=== PATIENT | male | born 1985 | race Caucasian/White ===

== ENCOUNTER 2019-02-09 09:19 | Emergency (ER) ==
[2019-02-09 09:32] VITALS: TEMP 96.9; BMI 22.4
[2019-02-09 09:38] VITALS: BP 162/135
--- NOTE | 2019-02-09 09:56 | ED.PDOC ---
General ED Provider: Dr. BRISEYDA WALKER Chief Complaint: Seizure Stated Complaint: traveling patient apparently from [facility],States that he run out of gabapentin for his seizures.He dose not appear to be postictal,He says there was one event today lasting about 30-60 sec,He is not driving he says.He states that his dosage is 800mg tid,he wants two weeks supply becauyse his regular doctor retired and he has a new appointment in 2 weeks,. That is rather a very high Gabapenting/Neurontin dose.We also can not prescribe from er two weeks,especially if he travela and has no physician. More typical dosage of 300 mg tid is issued for 3 days as he is adviced to. follow with a local or other doctor regular office to document his seizures. Time Seen by Physician: 09:35 Mode of Arrival: Walk-In Information Source: Patient Exam Limitations: No limitations, Other Nursing and Triage Documentation Reviewed and Agree: Yes Does patient meet sepsis criteria?: No System Inflammatory Response Syndrome: Not Applicable Sepsis Protocol: For patient's 13 years and over: Temp is 96.8 and below OR 101 and greater Pulse >90 BPM Resp >20/minute Acutely Altered Mental Status Are patient's symptoms suggestive of a new infection, such as: -Pneumonia -Skin, Soft Tissue -Endocarditis -UTI -Bone, Joint Infection -Implantable Device -Acute Abdominal Infection -Wound Infection -Meningitis -Blood Stream Catheter Infection -Unknown Neurological Complaint Exam - Seizure Complaint/Exam Onset/Duration: apparently his father was "there" but he brought nobody with him to witness Symptoms Are: Resolved Episodes Lasting: Seconds Severity: Self-limited Aggravating: Reports: Medication non-compliance Alleviating: Reports: Medication Related History: Reports: Similar episode SAH Risk Factors: Reports: None Meningitis Risk Factors: Reports: None Related Surgical History: Reports: None Carotid Bruit Present: No Cephalohematoma Present: No Tongue Bitten: No Neck Pain Present: No Nystagmus Present: No Gag Reflex Present: No Speech: Present: Normal Findings Aphasia: Present: None Meningeal Signs Positive: No Focal Weakness: Present: None Focal Sensory Loss: Reports: None Gait: Normal [id number]: Normal Findings Pronator Drift: Present: None Romberg Test Positive: No Heel to Toe Normal: Yes Signs of Injury: Present: Normal findings Differential Diagnoses: Alcohol Withdrawal, Drug Withdrawal, New onset Seizure Disord., Other Review of Systems - Review Of Systems Constitutional: Reports: No symptoms Eyes: Reports: No symptoms Ears, Nose, Mouth, Throat: Reports: No symptoms Respiratory: Reports: No symptoms Cardiac: Reports: No symptoms GI: Reports: No symptoms : Reports: No symptoms Musculoskeletal: Reports: No symptoms Skin: Reports: No symptoms Neurological: Reports: No symptoms Endocrine: Reports: No symptoms. Denies: Intolerance to heat Hematologic/Lymphatic: Reports: No symptoms All Other Systems: Reviewed and Negative Past Medical History - Past Medical History Endocrine: Reports: None Cardiovascular: Reports: Hypertension Respiratory: Reports: None Hematological: Reports: None Gastrointestinal: Reports: None Genitourinary: Reports: None Neuro/Psych: Reports: None Musculoskeletal: Reports: None Cancer: Reports: None - Surgical History General Surgical History: Reports: None - Family History Family History: Reports: None - Social History Smoking Status: Current some day smoker Hx Substance Use: Yes (marjuana one month ago) Alcohol Screening: Occasionally - Immunizations Tetanus Shot up to Date: Yes Physical Exam - Physical Exam Appearance: Well-appearing Ill-appearing: None Pain Distress: None Eyes: KRUNAL ENT: Ears normal Neck: Supple Respiratory: Airway patent Cardiovascular: RRR GI/: Soft Musculoskeletal: Normal strength Skin: Warm Neurological: Sensation intact Critical Care Note - Critical Care Note Total Time (mins): 0 Course - Course Vital Signs: Temp Pulse Resp BP Pulse Ox 02/09/19 09:38 162/135 H 02/09/19 09:22 96.9 F L 128 H 16 177/141 H 97 Departure - Departure Time of Disposition: 10:05 Disposition: HOME SELF-CARE Discharge Problem: Seizure Instructions: Epilepsy (ED) Condition: Good Pt referred to PMD for follow-up: Yes (follow with local PCP for dx seizures) IPMP verified?: No (pt oput of State/says from [facility]/.) Allergies/Adverse Reactions: Allergies No Known Allergies Allergy (Unverified 02/09/19 09:30) Home Medications: Ambulatory Orders Clonazepam [Klonopin] 1 mg PO BEDTIME 02/09/19 Dextroamphetamine/Amphetamine [Adderall Xr 30 mg Capsule] 30 mg PO DAILY Gabapentin [Neurontin] 800 mg PO TID 02/09/19 Disposition Discussed With: Patient
== END 2019-02-09 10:30 | disposition home or self-care (01) ==
LOC: ED 09:19
DX: R56.9 Unspecified convulsions (principal); Z91.14 Patient's other noncompliance with medication regimen; I10 Essential (primary) hypertension; F17.210 Nicotine dependence, cigarettes, uncomplicated; Z79.899 Other long term (current) drug therapy
CPT/HCPCS: 99282